=== PATIENT | male | born 1995 | race Caucasian/White ===

== ENCOUNTER 2019-05-02 12:08 | Day surgery (SDC) | payer OTHER ==
[~2019-05-02 12:08] MED LIST: BUPIVACAINE HCL 0.25% /EPINEPHRINE INJ/PF 30 ML SDV ONE; CEFAZOLIN 1 GM/D5W RTU 1 GM/50 ML RTUPB IV PRN; DEXAMETHASONE SOD PHOSPHATE INJ 4 MG/1 ML VIAL ONE; GLYCOPYRROLATE 1 MG/5 ML VIAL ONE; KETOROLAC TROMETHAMINE 60 MG/2 ML SDV ONE; LIDOCAINE 2% INJ-PF (20 MG/ML) 2 ML AMPUL ONE; NEOSTIGMINE METHYLSULFATE 10 MG/10 ML VIAL ONE; ONDANSETRON HCL INJ/PF 4 MG/2 ML SDV ONE; ROCURONIUM BROMIDE INJ 50 MG/5 ML VIAL IV ONE
[2019-05-02] MEDS ORDERED: FENTANYL CITRATE INJ/PF 250 MCG/5 ML AMPULE ONE (13:58)
[2019-05-02] MEDS ORDERED: PROPOFOL INJ 200 MG/20 ML VIAL IV ONE (13:59)
[2019-05-02] MEDS ORDERED: MIDAZOLAM 2 MG/2 ML INJ ONE (13:59)
[2019-05-02] MEDS ORDERED: CEFAZOLIN 1 GM/D5W RTU 1 GM/50 ML RTUPB IV ONE (14:05)
[2019-05-02] MEDS ORDERED: METHYLENE BLUE 50 MG/10 ML AMPULE ONE (14:28)
[2019-05-02] MEDS ORDERED: HYDROMORPHONE HCL INJ/PF 2 MG/ML AMPULE ONE (15:00)
[2019-05-02] MEDS ORDERED: DEXMEDETOMIDINE INJ 80 MCG/20 ML VIAL IV ONE (15:00)
[2019-05-02] MEDS ORDERED: OXYCODONE-ACETAMINOPHEN 5-325 MG TABLET PO PRN (15:13)
--- NOTE | 2019-05-02 15:24 | Operative Report ---
Nonrecallable Operative Report DATE OF SURGERY: 05/02/19 PREOPERATIVE DIAGNOSIS: Pilonidal cyst POSTOPERATIVE DIAGNOSIS: Pilonidal cyst OPERATION: Pilonidal cystectomy SURGEON: AIMEE LOMBARDI [employer] REPAIRER: ROMINA WEBB ANESTHESIA: GA TISSUE REMOVED OR ALTERED: Pilonidal cyst COMPLICATIONS: None ESTIMATED BLOOD LOSS: 10 cc INTRAOPERATIVE FINDINGS: See procedure note PROCEDURE: Patient was brought to the operating room awake alert stable condition induced under general anesthesia on the transfer gurney and then placed in a prone semi- jackknife position. The lower back and buttock were prepped and draped in usual sterile fashion for this procedure. After appropriate timeout and site verification a small cystic opening was infiltrated with a methylene blue dyed saline to outline any deep cysts. We then made an elliptical incision in the buttock cleft approximately 10 cm long by approximately 3 cm wide to encompass the draining sinus and all the visible pits. Then carried our dissection down through subcutaneous tissue with Bovie cautery on each side of the elliptical incision through the deep fatty tissue to the presacral fascia. Incised all the fatty tissue and accompanying cyst with the Bovie cautery. The dissection carried us down to the coccyx. After excision of the fatty tissue we irrigated the wound copiously with normal saline. Placed 1/4 inch [place] drain at the base of the wound and brought out through separate stab wound between the buttock cleft. It was fixed in place with the 3-0 nylon suture. Then closed the incision in layers the deep fat subcutaneous tissue was closed with interrupted 3-0 Vicryl and then a subdermal layer was also closed with 3-0 Vicryl. The skin was closed with interrupted placed 3-0 nylon sutures Patient was then placed in a supine position after sterile dressing was applied. Estimated blood loss for the procedure was less than 10 cc sponge needle counts were correct x2. Romina NUNN was present for the entire procedure help with wound closure and wound retraction.
--- NOTE | 2019-05-02 15:26 | Discharge Summary ---
Discharge Summary (SDC) - Discharge Final Diagnosis: Pilonidal cyst Date of Surgery: 05/02/19 Discharge Date: 05/02/19 Condition: Good Referrals: CHUCHO VILLASEÑOR MD [Primary Care Provider] - Discharge Diet: As Tolerated Discharge Activity: Activity As Tolerated Report the Following to Your Physician Immediately: Shortness of Breath, Nausea, Vomiting, Increase in Pain, Signs of Hypoglycemia - Remove dressing tomorrow and wash and shower at least every day with open warm water. Pat dry Then reapply a light gauze dressing., Yellow Skin
[2019-05-02 17:32] VITALS: BP 117/56
== END 2019-05-02 17:20 | disposition home or self-care (01) ==
LOC: OROUT 12:08
PROVIDERS: ATTEND Surgery
DX: L05.91 Pilonidal cyst without abscess (principal)
CPT/HCPCS: 00300; 11771; J2250; J3490 ×5; J0690; J1100; J1885; J3010; J2710; J2405; J2704; Q9968; 300; J1170

== ENCOUNTER 2019-05-24 03:09 | Emergency (ER) | payer OTHER ==
--- NOTE | 2019-05-24 08:28 | ER Document Report ---
HPI - HPI Time Seen by Provider: 05/24/19 08:06 Pain Level: 4 Notes: Patient is a 23-year-old male with no significant past medical history who presents 3 weeks status post pilonidal w/o abscess surgery without abscess after noticing increased drainage from the surgical site as well as noticing some bloody drainage. Patient currently does have a [place] drain in place. He is still eating and drinking without difficulty. He is urinating normally and having normal bowel movements. No other concerns or complaints at this time. Denies any headache, fever, URI, sore throat, chest pain, palpitations, syncope, cough, shortness of breath, wheeze, dyspnea, abdominal pain, nausea/vomiting/diarrhea, urinary retention, dysuria, hematuria, loss of control of bowel or bladder, numbness/tingling, saddle anesthesia, muscle paralysis/weakness, or rash. - ROS Systems Reviewed and Negative: Yes All other systems reviewed and negative - DERM Skin Color: Normal, [place] Past Medical History - Social History Smoking Status: Unknown if Ever Smoked Chew tobacco use (# tins/day): Yes Frequency of alcohol use: Occasional Drug Abuse: None Family History: Reviewed & Not Pertinent Patient has suicidal ideation: No Patient has homicidal ideation: No - Past Medical History Cardiac Medical History: Denies: Hx Coronary Artery Disease, Hx Heart Attack, Hx Hypertension Pulmonary Medical History: Denies: Hx Asthma, Hx Bronchitis, Hx COPD, Hx Pneumonia Neurological Medical History: Denies: Hx Cerebrovascular Accident, Hx Seizures Musculoskeletal Medical History: Denies Hx Arthritis - Immunizations Hx Diphtheria, Pertussis, Tetanus Vaccination: Yes Vertical Provider Document - CONSTITUTIONAL Agree With Documented VS: Yes Notes: PHYSICAL EXAMINATION: GENERAL: Well-appearing, well-nourished and in no acute distress. NECK: Normal range of motion, supple without lymphadenopathy LUNGS: Breath sounds clear to auscultation bilaterally and equal. No wheezes rales or rhonchi. HEART: Regular rate and rhythm without murmurs, rubs, gallops. ABDOMEN: Soft, nontender, nondistended abdomen. No guarding, no rebound. Normal bowel sounds present. No CVA tenderness bilaterally. Buttock just inferior to coccyx area: there are sutures in place with purulence noted. [place] drain in place. No obvious bleeding noted. + mild tenderness to the area w. mild erythema. No obvious induration. No obvious perirectal tenderness noted. Musculoskeletal: FROM to passive/active. Strength 5+/5. Extremities: No cyanosis, clubbing, or edema b/l. Peripheral pulses 2+. Capillary refill less than 3 seconds. NEUROLOGICAL: Normal speech, normal gait. Normal sensory, motor exams PSYCH: Normal mood, normal affect. SKIN: see above - INFECTION CONTROL TRAVEL OUTSIDE OF THE [place] IN LAST 30 DAYS: No Course - Re-evaluation Re-evalutation: 05/24/19 08:26 [address] did speak with Dr[address] Lombardi, his surgeon, who recommends Epson salt soaks. He would like nothing else performed at this time with continued monitoring and follow-up. The drainage and some bleeding are expected per surgeon. No need for antibiotics at this time. Patient is an afebrile, well-hydrated, 23-year-old male who presents for continued drainage status post pilonidal abscess surgery. Vitals are acceptable without significant tachycardia, tachypnea, or hypoxia. PE is otherwise unremarkable. Patient is nontoxic-appearing and is tolerating p.o. without di fficulty. No labs or imaging warranted at this time. Low suspicion for any sepsis or other systemic emergent condition at this time. Patient aware that condition can change and he needs to monitor closely. Recheck with the surgeon in 3 to 5 days. Return to the ED with any other worsening/concerning symptoms. Patient is in agreement. - Vital Signs Vital signs: Temp Pulse Resp BP Pulse Ox 97.9 F 51 L 20 120/54 L 98 05/24/19 06:51 05/24/19 06:51 05/24/19 06:51 05/24/19 06:51 05/24/19 06:51 Discharge - Discharge Clinical Impression: Encounter for wound re-check Condition: Stable Disposition: HOME, SELF-CARE Additional Instructions: Keep the skin clean Wash with soap and water Tylenol/ibuprofen if needed Triple antibiotic ointment Epsom salt soaks 3x/day Monitor for any worsening symptoms Recheck with your General Surgeon early next week (approx 3-5 days) Return to the ED with any worsening symptoms and/or development of fever, headache, chest pain, palpitations, syncope, shortness of breath, trouble breathing, abdominal pain, n/v/d, red streaks, worsening swelling, or other worsening symptoms that are concerning to you. Referrals: CHUCHO VILLAESÑOR MD [Primary Care Provider] - Follow up as needed AIMEE LOMBARDI MD [ACTIVE STAFF] - Follow up in 3-5 days
[2019-05-24 08:39] VITALS: BP 113/47
== END 2019-05-24 08:40 | disposition home or self-care (01) ==
LOC: ER 03:09
DX: T81.89XA Other complications of procedures, not elsewhere classified, initial encounter (principal); Z98.890 Other specified postprocedural states
CPT/HCPCS: 99283